=== PATIENT | male | born 1995 | race African-American/Black ===

== ENCOUNTER 2019-11-24 14:56 | Emergency (ER) | payer OTHER ==
[2019-11-24 15:16] VITALS: BP 125/72
--- NOTE | 2019-11-24 15:34 | ER Document Report ---
HPI - HPI Patient complains to provider of: STD check Time Seen by Provider: 11/24/19 15:21 Pain Level: Denies Notes: 24-year-old male to the emergency department with complaints of needing an STD check. He states that his partner who he has been having unprotected intercourse with told him that she may have herpes. He denies any lesions or any symptoms. He denies any penile discharge, testicular pain, penile pain. He states occasionally he will get a hair but and scratch it but that has not happened recently. He denies ever having herpes before. - ROS Systems Reviewed and Negative: Yes All other systems reviewed and negative - CONSTITUTIONAL Constitutional: DENIES: Fever, Chills - EENT EENT: DENIES: Sore Throat, Nasal Drainage-Clear - NEURO Neurology: DENIES: Headache - CARDIOVASCULAR Cardiovascular: DENIES: Chest pain - RESPIRATORY Respiratory: DENIES: Trouble Breathing, Coughing - GASTROINTESTINAL Gastrointestinal: DENIES: Abdominal Pain, Nausea, Patient vomiting, Diarrhea - URINARY Urinary: DENIES: Dysuria, Urgency, Frequency - REPRODUCTIVE Notes: Patient denies any testicular pain, scrotal pain, penile lesions, penile pain, urinary retention. - DERM Skin Color: Normal Skin Problems: None Past Medical History - General Information source: Patient - Social History Smoking Status: Current Every Day Smoker Chew tobacco use (# tins/day): No Frequency of alcohol use: Social Drug Abuse: None Family History: Reviewed & Not Pertinent Patient has suicidal ideation: No Patient has homicidal ideation: No Vertical Provider Document - CONSTITUTIONAL Agree With Documented VS: Yes Exam Limitations: No Limitations General Appearance: WD/WN, No Apparent Distress - INFECTION CONTROL TRAVEL OUTSIDE OF THE [place] IN LAST 30 DAYS: No - HEENT HEENT: Atraumatic, PERRLA - NECK Neck: Supple - RESPIRATORY Respiratory: Breath Sounds Normal. negative: Rales, Rhonchi, Wheezing - CARDIOVASCULAR Cardiovascular: Regular Rate, Regular Rhythm, No Murmur - GI/ABDOMEN Gastrointestinal: Abdomen Soft, Abdomen Non-Tender - REPRODUCTIVE Notes: Chaperoned by ANN Seaman. There appears to be no active herpetic lesions on the penile head, shaft, scrotal sac or in the groin. There appears to be no other infections. There is no penile discharge. Testicles are nontender to palpation. There is an area at the top of the head that looks like a healed cut. Patient states that he cut his head of his penis 2 months ago and it is been healing but it never was painful or looked like an ulcer. It is not open and it appears to be healing. - NEURO Level of Consciousness: Awake, Alert, Appropriate - DERM Integumentary: Warm, Dry Course - Re-evaluation Re-evalutation: Impression: STD exposure. There does not appear to be any open and active herpetic lesions. There is an area that appears to be a healing abrasion but is not open to obtain an HSV culture. He has no other lesions to his penis. He has no other testicular pain. He would like to also be tested for gonorrhea and chlamydia. We have places orders. I have given him a prescription for Valtrex in case he starts to see lesions. He agrees with that plan. No sex for at least 1 week and encouraged to use protection. He agrees. - Vital Signs Vital signs: Temp Pulse Resp BP Pulse Ox 98.9 F 63 16 125/72 97 11/24/19 15:15 11/24/19 15:15 11/24/19 15:15 11/24/19 15:15 11/24/19 15:15 Discharge - Discharge Clinical Impression: Possible exposure to STD Condition: Stable Disposition: HOME, SELF-CARE Additional Instructions: You have been evaluated for possible STD exposure. Await test results for gonorrhea and chlamydia. It did not appear that you had any active herpetic lesions on your genitalia. You have been given a prescription for an antiviral in case he started to see lesions. Use protection with sex. No sex for at least 1 week. Return if any worsening symptoms. Prescriptions: Valacyclovir HCl [Valtrex] 1,000 mg PO TID #21 tablet [facility]NO [facility]AL [facility] - Follow up in 1 week
== END 2019-11-24 16:17 | disposition home or self-care (01) ==
LOC: ER 14:56
DX: Z20.2 Contact with and (suspected) exposure to infections with a predominantly sexual mode of transmission (principal); F17.200 Nicotine dependence, unspecified, uncomplicated
CPT/HCPCS: 99283

== ENCOUNTER 2020-06-01 23:28 | Emergency (ER) | payer OTHER ==
[2020-06-02 00:21] VITALS: BP 127/68
== END 2020-06-02 04:10 | disposition left against medical advice (07) ==
LOC: ER 23:28
DX: Z53.21 Procedure and treatment not carried out due to patient leaving prior to being seen by health care provider (principal); R21 Rash and other nonspecific skin eruption

== ENCOUNTER 2020-06-18 12:29 | Emergency (ER) | payer OTHER ==
[2020-06-18 12:45] VITALS: BP 117/73
--- NOTE | 2020-06-18 13:05 | ER Document Report ---
ED Skin Rash/Insect Bite/Abscs - General Chief Complaint: Rash Stated Complaint: RASH Time Seen by Provider: 06/18/20 12:53 Mode of Arrival: Ambulatory Information source: Patient Notes: 24-year-old male presents to ED for complaint of rash to both thighs for the last 3 and half weeks. He states around June 01 he put some DryMax on his skin and it made the rash and blisters much worse. He states he came to the emergency room 1 day to be seen but the wait lab was so long that he got his vital signs of the left. He is has not been to a doctor to get examined yet. He states the rash is still there he is now washing with gentle soap and using Stevens butter. He states he does he smoke. He states he uses alcohol maybe once a month. He is active duty . He states right before they got there was a special occasion Dewitt's Day and they did have sexual intercourse and then she found that she had herpes. He states he does not know if he has picked it up from her or not. He states he is come in to find out what is going on with him. He will get examined and soon as I have a nurse to crepe maker. TRAVEL OUTSIDE OF THE [place] IN LAST 30 DAYS: No - HPI Patient complains to provider of: Skin rash/lesion Onset: Other - 3-1/2 weeks Onset/Duration: Persistent Quality of pain: Burning Severity: Moderate Pain Level: 3 Skin Character: Rash, Vesicular Quality of rash: Painful Exacerbated by: Movement, Walking, Other Relieved by: Denies - Cleaning Similar symptoms previously: Yes Recently seen / treated by doctor: No - Related Data Allergies/Adverse Reactions: strawberry Allergy (Verified 11/24/19 15:20) Past Medical History - General Information source: Patient - Social History Smoking Status: Current Every Day Smoker - Esmoke Cigarette use (# per day): Yes Smoking Education Provided: Yes Frequency of alcohol use: Occasional Drug Abuse: None Lives with: Family Family History: Reviewed & Not Pertinent Patient has suicidal ideation: No Patient has homicidal ideation: No - Past Medical History Cardiac Medical History: Reports: None Pulmonary Medical History: Reports: None EENT Medical History: Reports: None Neurological Medical History: Reports: None Endocrine Medical History: Reports: None Renal/ Medical History: Reports: None Malignancy Medical History: Reports None GI Medical History: Reports: None Musculoskeletal Medical History: Reports None Skin Medical History: Reports None Psychiatric Medical History: Reports: None Traumatic Medical History: Reports: None Infectious Medical History: Reports: None Surgical Hx: Negative Past Surgical History: Reports: None - Immunizations Immunizations up to date: Yes Hx Diphtheria, Pertussis, Tetanus Vaccination: Yes Review of Systems - Review of Systems Constitutional: No symptoms reported EENT: No symptoms reported Cardiovascular: No symptoms reported Respiratory: No symptoms reported Gastrointestinal: No symptoms reported Genitourinary: No symptoms reported Male Genitourinary: Other - Rash to the groin Musculoskeletal: No symptoms reported Skin: Rash - To the groin Hematologic/Lymphatic: No symptoms reported Neurological/Psychological: No symptoms reported Physical Exam - Vital signs Vitals: Temp Pulse Resp BP Pulse Ox 98.3 F 87 16 117/73 98 06/18/20 12:43 06/18/20 12:43 06/18/20 12:43 06/18/20 12:43 06/18/20 12:43 Interpretation: Normal - General General appearance: Appears well, Alert - HEENT Head: Normocephalic, Atraumatic Eyes: Normal Pupils: PERRL - Respiratory Respiratory status: No respiratory distress Chest status: Nontender Breath sounds: Normal Chest palpation: Normal - Cardiovascular Rhythm: Regular Heart sounds: Normal auscultation Murmur: No - Abdominal Inspection: Normal Distension: No distension Bowel sounds: Normal Tenderness: Nontender Organomegaly: No organomegaly - Back Back: Normal, Nontender - Extremities General upper extremity: Normal inspection, Nontender, Normal color, Normal ROM, Normal temperature General lower extremity: Normal inspection, Nontender, Normal color, Normal ROM, Normal temperature, Normal weight bearing. No: Luis's sign - Neurological Neuro grossly intact: Yes Cognition: Normal Orientation: AAOx4 [place] Coma Scale Eye Opening: Spontaneous Matty Coma Scale Verbal: Oriented [place] Coma Scale Motor: Obeys Commands [place] Coma Scale Total: 15 Speech: Normal Motor strength normal: LUE, RUE, LLE, RLE Sensory: Normal - Psychological Associated symptoms: Normal affect, Normal mood - Skin Skin Temperature: Warm Skin Moisture: Dry Skin Color: Normal Location of irregularity: Other Character of irregularity: Vesicular, Other - There are lot of open scaly areas also where he has applied multiple chemicals to the area Irregularity with: Tenderness, Scaling Course - Re-evaluation Re-evalutation: 06/18/20 22:27 Patient was treated with a prescription of Valtrex. He was informed that he can follow-up with his primary care doctor if he wanted cultures to check for herpes but this was a sign that it would take a while and he would need follow-up if I did this test. He stated he would follow-up with primary care. He was also instructed to please quit putting multiple chemicals on this area which is clean with some mild soap and water and let dry. Patient verbalized understanding agreement with this treatment plan before being discharged home. - Vital Signs Vital signs: Temp Pulse Resp BP Pulse Ox 98.3 F 87 16 117/73 98 06/18/20 12:43 06/18/20 12:43 06/18/20 12:43 06/18/20 12:43 06/18/20 12:43 Discharge - Discharge Clinical Impression: Rash of groin Condition: Stable Disposition: HOME, SELF-CARE Additional Instructions: Genital Herpes Your exam suggests that you have a herpes infection. A culture can confirm the diagnosis. Herpes is caused by a virus, and can be transmitted sexually. After the initial infection has healed, the virus often erupts at the same location from time to time. Herpes can be treated with anti-viral medication. The medicine can be used as pills or ointment. It's most effective if started with the first symptoms of the attack. It is not a "cure" -- it simply shortens the length of the illness. If this is not your first attack, the medicine may not help you. In the female, herpes can infect the baby as it passes through the canal, causing a life-threatening disease. You should inform the invasive physician that you've had herpes should you (or your spouse) become . Sexual contact should be avoided any time the sores are present, but the v irus may be contagious even at other times. The use of condoms may help prevent infection in your partner. Valtrex Valtrex is used to treat infections caused by the Herpes family of viruses. It's available as capsules or ointment. Valtrex is most effective if started at the first sign of the viral outbreak. It can decrease the severity and duration of symptoms. However, it doesn't eliminate the virus from the body completely. If you're prone to repeated outbreaks of herpes, you'll continue to have attacks. Apply ointment with a disposable glove or finger-cot to avoid spreading the virus with your finger. If pills have been prescribed, take them for the full recommended course. Occasionally, mild nausea or headaches may occur. Call the doctor if you develop wheezing, itching, rash, shortness of breath, or lightheadedness. Acetaminophen Acetaminophen may be taken for pain relief or fever control. It's much safer than aspirin, offering a wider range of "safe" dosages. It is safe during . Some brand names are Tylenol, Panadol, Datril, Anacin 3, Tempra, and Liquiprin. Acetaminophen can be repeated every four hours. The following are maximum recommended dosages: WEIGHT Dose Drops Elixir Chewable(80mg) (LBS.) drprs=droppers tsp=teaspoon 6 40 mg .4 ml (1/2) 6-11 80 mg .8 ml (full) 1/2 tsp 1 tab 12-16 120 mg 1 1/2 drprs 3/4 tsp 1 1/2 tabs 17-23 160 mg 2 drprs 1 tsp 2 tabs 24-30 240 mg 3 drprs 1 1/2 tsp 3 tabs 30-35 320 mg 2 tsp 4 tabs 36-41 360 mg 2 1/4 tsp 4 1/2 tabs 42-47 400 mg 2 1/2 tsp 5 tabs 48-53 480 mg 3 tsp 6 tabs 54-59 520 mg 3 1/4 tsp 6 1/2 tabs 60-64 560 mg 3 1/2 tsp 7 tabs 65-70 600 mg 3 3/4 tsp 7 1/2 tabs 71-76 640 mg 4 tsp 8 tabs 77-82 720 mg 4 1/2 tsp 9 tabs 83-88 800 mg 5 tsp 10 tabs >89 pounds or adults 650 mg to 900 mg Acetaminophen can be repeated every four hours. Maximum daily dose not to exceed 4000 mg. These maximum recommended dosages are slightly higher than the dosages written on the product container, but these dosages are very safe and well below the toxic dosage for acetaminophen. Ibuprofen Ibuprofen is an excellent, safe drug for pain control. In addition, it has potent antiinflammatory effects which are beneficial, especially in the treatment of injuries, arthritis, or tendonitis. It's best to take ibuprofen with food. Persons with ulcer disease or allergy to aspirin should notify their physician of this before taking ibuprofen. Take the medication exactly as prescribed. Don't take additional doses unless instructed to do so by your doctor. If you develop wheezing, shortness of breath, hives, faintness, stomach pain, vomiting, or dark black stools, return for re-evaluation at once. FOLLOW-UP CARE: If you have been referred to a physician for follow-up care, call the physicians office for an appointment as you were instructed or within the next two days. If you experience worsening or a significant change in your symptoms, notify the physician immediately or return to the Emergency Department at any time for re-evaluation. Prescriptions: Valacyclovir HCl [Valtrex] 1,000 mg PO BID #40 tablet Forms: Smoking Cessation Education
== END 2020-06-18 13:24 | disposition home or self-care (01) ==
LOC: ER 12:29
DX: R21 Rash and other nonspecific skin eruption (principal); Z20.2 Contact with and (suspected) exposure to infections with a predominantly sexual mode of transmission; F17.290 Nicotine dependence, other tobacco product, uncomplicated
CPT/HCPCS: 99283